=== PATIENT | female | born 1945 | race Caucasian/White ===

== ENCOUNTER 2016-11-15 07:55 | Day surgery (SDC) | payer OTHER ==
[2016-11-15] VITALS (9 sets, daily range): BP systolic 155–193; BP diastolic 71–129
[~2016-11-15] VITALS: Ht 170.2 cm; Wt 88.0 kg
[2016-11-15] MEDS ORDERED: SIMV20TA6 PO (11:50)
[2016-11-15] MEDS ORDERED: GLYB1TAB13 PO (11:50)
[2016-11-15] MEDS ORDERED: [UNRECOGNIZED DRUG - CODE] PO (11:50)
[2016-11-15] MEDS ORDERED: ASPI81CT80 PO (11:50)
[2016-11-15] MEDS ORDERED: SITA100T8 PO (11:50)
[2016-11-15] MEDS ORDERED: TAMO20TA3 PO (11:50)
[2016-11-15] MEDS ORDERED: BENA1TAB PO (11:50)
[2016-11-15] MEDS ORDERED: DEXAMETHASONE 4 MG/ML VIAL ONE (12:45)
[2016-11-15] MEDS ORDERED: ONDANSETRON 4 MG/2 ML VIAL ONE (12:45)
[2016-11-15] MEDS ORDERED: LABETALOL 100 MG/20 ML VIAL ONE (12:45)
[2016-11-15] MEDS ORDERED: BUPIVACAINE-MPF 0.25% 30 ML VIAL INJ ONE (12:45)
[2016-11-15] MEDS ORDERED: SEVOFLURANE 250 ML BTL INH ONE (12:45)
[2016-11-15] MEDS ORDERED: PROPOFOL 200 MG/20 ML VIAL IV ONE (12:45)
[2016-11-15] MEDS ORDERED: MIDAZOLAM 2 MG/2 ML VIAL ONE (12:55)
[2016-11-15] MEDS ORDERED: fentaNYL 0.05 MG/ML VIAL ONE (12:55)
[2016-11-15] MEDS ORDERED: MORPHINE SULFATE 4 MG/ML SYR ONE (12:55)
[2016-11-15 13:18] LABS: PROTHROMBIN TIME 9.9 secs (10.8-13.4)
[2016-11-15] MEDS: NACL 0.9% 1,000 ML IV SCH ×2 (14:04→14:10)
[2016-11-15] MEDS ORDERED: METOCLOPRAMIDE 10 MG/2 ML INJ VIAL IVP PRN (14:05)
[2016-11-15] MEDS ORDERED: MORPHINE SULFATE 4 MG/ML SYR IV PRN (14:05)
[2016-11-15] MEDS ORDERED: HYDROmorphone 1 MG/ML AMP IVP PRN (14:05)
[2016-11-15] MEDS ORDERED: MIDAZOLAM 2 MG/2 ML VIAL IV ONE (14:05)
[2016-11-15] MEDS ORDERED: MORPHINE SULFATE 4 MG/ML SYR IVP PRN ×3 (14:05)
[2016-11-15] MEDS ORDERED: ONDANSETRON 4 MG/2 ML VIAL IV PRN (14:05)
[2016-11-15] MEDS ORDERED: MORPHINE SULFATE 2 MG/ML SYR IVP PRN (14:05)
[2016-11-15] MEDS ORDERED: HYDROcodone/APAP 5/325 MG 1 TAB TAB PO PRN (14:05)
--- NOTE | 2016-11-15 15:15 | NUR ---
RECEIVED PT FROM PACU, AWAKE, ALERT, ORIENTED, [place] SPEAKING, FAMILY AT BEDSIDE. WITH IV ON LEFT HAND, PATENT AND INTACT. NO S/S OF DISTRESS. NO COMPLAINTS OF PAIN. LEFT BREAST DRESSING, DRY AND INTACT. WITH RAF PEDRO DRAINING SMALL SANGEOUS FLUID. VS STABLE. WILL CONTINUE TO MONITOR POST OP.
--- NOTE | 2016-11-15 15:20 | NUR ---
PATIENT WAS ABLE TO VOID IN A BED JOSEPH. MODERATE AMOUNT OF CLEAR LIQUID NOTED. WILL OFFER CLEAR LIQUIDS.
[2016-11-15] MEDS ORDERED: ACET-2863 PO (16:04)
--- NOTE | 2016-11-15 18:00 | NUR ---
PT'S BLOOD PRESSURE REMAINS ELEVATED. NO RESPIRATORY DISTRESS NOTED. PT ASYMPTOMATIC. PAGED DR. MOLINA, AWAITING FOR CALL BACK.
--- NOTE | 2016-11-15 18:30 | NUR ---
PT AMBULATED TO THE BATHROOM WITH ASSISTANCE. VOIDED FREELY. DINNER SERVED.
--- NOTE | 2016-11-15 18:40 | NUR ---
BLOOD PRESSURE ELEVATED. NO S/SX OF DISTRESS. PAGED DR. MOLINA, AWAITING FOR CALL BACK.
--- NOTE | 2016-11-15 19:29 | NUR ---
ENDORSED TO EXERCISE EQUIPMENT SPECIALIST NURSE FOR CONTINUITY OF CARE.
--- NOTE | 2016-11-15 19:30 | NUR ---
RECEIVED PT IN FAIR CONDITION FROM AM NURSE. AWAKE,ALERT AND ORIENTED X4. NO C;O ANY PAIN NOR DISCOMFORT NOTED. S/P LT BREAST PARTIAL MASTECTOMY. WITH DRESSING DRY AND INTACT. WITH J PEDRO DRAINING TO SMALL AMT BLOODY LIQUID. VOIDED X2 . WITH HL ON THE LT HAND#20 CLEAR AND PATENT. VITAL SIGNS TAKEN.BP STILL ELEVATED. WILL WAIT FOR DR KATHLEEN TO CALL BACK. CALL LIGHT PLACED WITHIN EASY REACH . WILL CONTINUE TO MONITOR.
--- NOTE | 2016-11-15 19:50 | NUR ---
PAGED DR. MOLINA FOR BP STILL ELEVATED 189/129. LEFT MESSAGE. WILL WAIT FOR CALL BACK.
--- NOTE | 2016-11-15 21:10 | NUR ---
ABLE TO GET HOLD OF DR. MOLINA. CAME A T TIME AND SAID PT TO STAY OVERNIGHT AND HAVE CONSULT WITH DR. CHEN OR NIDHI FOR THE HTN CRISIS.
[2016-11-15] MEDS ORDERED: hydrALAZINE 10 MG TAB PO PRN (21:20)
--- NOTE | 2016-11-15 21:20 | NUR ---
PAGED DR. TERRELL. CALLED BACK . MADE AWARE OF THE PT CONDITION . WITH ORDERS. BUT TO HAVE DR. CHEN CONSULT.
--- NOTE | 2016-11-15 22:35 | NUR ---
LATEST BLOOD PRESSURE TAKEN AFTER HYDRALAZINE 10 MG PO GIVEN 2140. PT IS RESTING WELL WITH NO C/O ANY DISCOMFORT NOR PAIN NOTED. WILL CONTINUE TO MONITOR.
[2016-11-16] VITALS: BP 149/76
--- NOTE | 2016-11-16 | NUR ---
LATEST BP 149/76. NO C/O ANY PAIN NOR DISCOMFORT ON THE SURGICAL SITE. WILL CONTINUE TO MONITOR,.
[2016-11-16] MEDS: NACL 0.9% 1,000 ML IV SCH (00:04)
--- NOTE | 2016-11-16 00:10 | NUR ---
PT AHD SOME SANDWICH AND JUICE.
--- NOTE | 2016-11-16 00:22 | NUR ---
PT REFUSED TO ANSWER QUESTIONS FROM JERARDO ,WIRELINE SUPERVISOR #[id number].
--- NOTE | 2016-11-16 02:00 | NUR ---
SLEEPING AT THIS TIME. NO S/S OF ANY DISCOMFORT NOR PAIN NOTED.
[2016-11-16 04:04] VITALS: BP 138/60
--- NOTE | 2016-11-16 04:04 | NUR ---
LATEST BP OF THIS TIME 138/60 , PT NO C/O ANY PAIN NOTED.
--- NOTE | 2016-11-16 05:45 | NUR ---
EMPTIED J PEDRO WITH 25 ML SANGUINEOUS OUTPUT. NO C/O PAIN NOTED.
--- NOTE | 2016-11-16 07:30 | NUR ---
RECEIVED REPORT FROM KALPESH RN FOR CONTINUITY OF CARE. PATIENT AWAKE SITTING UP ON THE BED DRESSED UP WAITING TO BE DISCHARGE AND HER SON, CHINESE SPEAKING BUT ABLE TO MAKE NEEDS KNOWN. NO S/S OF RESP DISTRESS NOTED , DENIES ANY PAIN IV SITE LEFT HAND GAUGE 20 INTACT AND PATENT. LEFT BREAST MASTECTOMY COVERED WITH ORIGINAL DRESSING AND ZHOU DRAINAGE, NO DRAINAGE NOTED PLAN OF CARE DISCUSSED WITH THE PATIENT VITALS STABLE WILL CONTINUE TO MONITOR.
--- NOTE | 2016-11-16 07:40 | NUR ---
ENDORSED PT IN STABLE CONDITION TO AM NURSE FOR CONTINUITY OF CARE.
--- NOTE | 2016-11-16 08:00 | NUR ---
PATIENT'S SON IN THE UNITS STATED HIS MOM WANTED TO GO , CHECKED BP EXPLAIN THE HIGH RISK OF HIGH BP 172/81 STATED SHE IS SO NERVOUS TO BE IN THE HOSPITAL. NOTIFIED DR MOLINA ALL MORNING BP MEDS GIVEN , ATE BREAKFAST GOOD APPETITE.
[2016-11-16 08:27] VITALS: BP 171/78
--- NOTE | 2016-11-16 08:59 | NUR ---
PATIENT HAS BEEN SCREENED AND CATEGORIZED MODERATE NUTRITION RISK. PATIENT WILL BE SEEN WITHIN 3-5 DAYS OF ADMISSION. 11/19/16-11/21/[address]
[2016-11-16] MEDS ORDERED: METOPROLOL 50 MG TAB PO SCH (09:00)
[2016-11-16] MEDS ORDERED: BENAZEPRIL 20 MG TAB PO SCH (09:00)
[2016-11-16] MEDS ORDERED: HYDROCHLOROTHIAZIDE 25 MG TAB PO SCH (09:00)
--- NOTE | 2016-11-16 10:00 | NUR ---
ALL DISCHARGE INSTRUCTION AND PRESCRIPTION GIVEN, VERBALIZED UNDERSTANDING FOR F/U WITH DR MOLINA ON 11/22 . DRESSING CHANGE ON LEFT BREAST WITH KAYLENE CLEAN, DRY NO DRAINAGE NOTED, PICTURE TAKEN, TEACHING HAS BEEN DONE FOR HOW TO EMPTY THE ZHOU ,VERBALIZED UNDERSTANDING . D/C PATIENT HOME ACCOMPANY WITH HER SON ,STABLE CONDITION UPON DISCHARGE
== END 2016-11-16 10:00 | disposition home or self-care (01) ==
LOC: MMU 07:55 → MDS 07:55 → MMU 16:25 → MDS 11-16 10:00
PROVIDERS: ATTEND Surgery
DX: C50.912 Malignant neoplasm of unspecified site of left female breast (principal); I10 Essential (primary) hypertension; E78.5 Hyperlipidemia, unspecified; D64.9 Anemia, unspecified; Z98.890 Other specified postprocedural states; Z90.710 Acquired absence of both cervix and uterus; Z79.82 Long term (current) use of aspirin; Z79.899 Other long term (current) drug therapy; E11.9 Type 2 diabetes mellitus without complications
CPT/HCPCS: 19301; 36415; 71010; 82948; 85610; 85730; 87081; 93005; J0690; J1100; J2250; J2270; J2405; J2704; J3010; J3490; J7030; J7060

== ENCOUNTER 2017-05-02 10:37 | Day surgery (SDC) | payer OTHER ==
[~2017-05-02] VITALS: Ht 167.6 cm; Wt 90.7 kg
[~2017-05-02 10:37] MED LIST: ACET-2863 PO; ASPI-1677 PO; BENA1TAB PO; GLYB1TAB13 PO; METO100T33 PO; SIMV20TA6 PO; SITA100T8 PO; TAMO20TA3 PO
[2017-05-02] MEDS ORDERED: LIDOCAINE 1% 0 ML ONE (11:44)
== END 2017-05-02 12:50 | disposition home or self-care (01) ==
LOC: MDS 10:37 → MMU 10:38 → MDS 12:50
PROVIDERS: ATTEND Surgery
DX: N64.89 Other specified disorders of breast (principal); D64.9 Anemia, unspecified; E78.5 Hyperlipidemia, unspecified; E11.9 Type 2 diabetes mellitus without complications; Z90.710 Acquired absence of both cervix and uterus; Z98.890 Other specified postprocedural states; Z90.10 Acquired absence of unspecified breast and nipple; Z85.3 Personal history of malignant neoplasm of breast; Z79.82 Long term (current) use of aspirin
CPT/HCPCS: 19083; 76942; 82948; 88305; J2001; J7030